=== PATIENT | male | born 1975 | race African-American/Black ===

== ENCOUNTER 2020-07-22 15:18 | Inpatient (IN) | payer MEDICAID, OTHER ==
[~2020-07-22] VITALS: Ht 167.6 cm; Wt 72.6 kg
[2020-07-22] MEDS ORDERED: cloNIDine HCL 0.1 MG TAB ONE (15:23)
[2020-07-22] MEDS ORDERED: cloNIDine HCL 0.1 MG TAB PO ONE (15:30)
[2020-07-22 16:35] LABS: Basophils # (auto) 0.1 10 ^3/uL (0-0.2); Basophils % (auto) 1.1 % (0.0-2.0); Eosinophils # (auto) 0.1 10 ^3/uL (0-0.8); Eosinophils % (auto) 0.9 % (0.0-7.0); Hematocrit 42.9 % (36.0-46.0); Hemoglobin 14.8 g/dL (12.2-16.2); Lymphocytes # (auto) 1.4 10 ^3/uL (0.4-5.4); Lymphocytes % (auto) 24.9 % (10.0-50.0); Mean Corpuscular Hemoglobin 30.1 pg (28.0-32.0); Mean Corpuscular Hgb Conc. 34.5 g/dL (32.0-36.0); Mean Corpuscular Volume 87.2 fL (80.0-100.0); Monocytes # (auto) 0.5 10 ^3/uL (0-1.3); Monocytes % (auto) 9.3 % (0.0-12.0); Neutrophils # (auto) 3.6 10 ^3/uL (1.6-8.6); Neutrophils % (auto) 63.8 % (37.0-80.0); Platelet Count (auto) 264 10^3/uL (140-450); Red Blood Cells 4.92 10^6/uL (4.0-5.20); Red Cell Distribution Width 14.8 % (11.8-14.3); White Blood Cell 5.6 10^3/uL (4.4-10.8)
[2020-07-22 16:46] LABS: Albumin 3.7 g/dL (3.4-5.0); Anion Gap 8 (5-15); Blood Urea Nitrogen 13 mg/dL (7-18); Calcium 8.8 mg/dL (8.5-10.1); Carbon Dioxide 23 mmol/L (21-32); Chloride 108 mmol/L (98-107); Glucose 94 mg/dL (74-106); Potassium 3.8 mmol/L (3.5-5.1); Sodium 139 mmol/L (136-145)
[2020-07-22] MEDS ORDERED: amLODIPine BESYLATE 5 MG TAB PO ONE (17:00)
[2020-07-22 17:01] LABS: Alanine Aminotransferase 24 U/L (13-56); Alkaline Phosphatase 118 U/L (45-117); Aspartate Aminotransferase 17 U/L (15-37); BUN/Creatinine Ratio 10.9; Bilirubin, Total 0.2 mg/dL (0.2-1.0); GFR African American 63 mL/min; GFR Non-African American 52 mL/min; Total Protein 7.8 g/dL (6.4-8.2)
[2020-07-22] MEDS ORDERED: HYDROcodone-ACET 5/325MG TAB PO PRN (19:30)
[2020-07-22] MEDS ORDERED: ACETAMINOPHEN 325 MG TAB PO PRN (19:30)
[2020-07-22] MEDS ORDERED: ONDANSETRON HCL 4 MG/2 ML VIAL IV PRN (19:30)
[2020-07-22] MEDS ORDERED: NITROGLYCERIN 0.4 MG SL TAB SL PRN (19:30)
[2020-07-22] MEDS ORDERED: MORPHINE SULF INJ 2 MG/ML SYRINGE 1ML IV PRN ×2 (19:30)
[2020-07-23 08:23] LABS: Urine Bacteria NONE SEEN /hpf (None Seen); Urine Blood Negative /uL (Negative); Urine Specific Gravity 1.005 (1.001-1.035); Urine WBC <1 /hpf (0 - 3)
[2020-07-23 08:34] LABS: Potassium 4.2 mmol/L (3.5-5.1)
[2020-07-23 08:35] LABS: BUN/Creatinine Ratio 10.4
[2020-07-23] MEDS ORDERED: amLODIPine BESYLATE 5 MG TAB PO SCH (10:00)
[2020-07-23] MEDS ORDERED: HCTZ 25 MG TAB PO SCH (10:00)
[2020-07-23] MEDS ORDERED: hydrALAZINE HCL 20 MG/ML VL IV PRN (11:30)
[2020-07-23] MEDS: LISINOPRIL 10 MG TAB PO SCH ×2 (11:45→12:25)
[2020-07-23] MEDS ORDERED: AML5T PO (17:11)
[2020-07-23] MEDS ORDERED: LISI-716 PO (17:11)
[2020-07-23] MEDS ORDERED: HYDR25TA5 PO (17:11)
[2020-07-23 17:49] VITALS: BP 134/89
[2020-07-23] MEDS ORDERED: LISINOPRIL 10 MG TAB PO SCH (22:00)
== END 2020-07-23 17:48 | disposition home or self-care (01) | DRG 199 ==
LOC: ER 15:18 → EDSEX 15:18 → OVERFLOW 19:22
PROVIDERS: ADMIT Internal Medicine; ATTEND Internal Medicine
DX: I16.0 Hypertensive urgency (principal); F41.9 Anxiety disorder, unspecified; I10 Essential (primary) hypertension; Z91.14 Patient's other noncompliance with medication regimen; Z20.822 Contact with and (suspected) exposure to COVID-19
CPT/HCPCS: 36415; 71045; 80048; 80053; 81001; 84484; 85025; 87426; 93306; G0378